=== PATIENT | male | born 1935 | race Caucasian/White ===

== ENCOUNTER 2024-04-19 10:04 | Inpatient (IN) | payer MEDICARE ==
[~2024-04-19] VITALS: Ht 172.7 cm; Wt 119.5 kg
[2024-04-19] VITALS (113 sets, daily range): BP systolic 109–122; BP diastolic 52–59; PULSE 65–67; TEMP 98; O2SAT 81–100
[2024-04-19] MEDS ORDERED: NS 1,000 ML IV ONE ×2 (10:45→11:30)
[2024-04-19 10:49] LABS: BASO % 0.2 % (0.0-2.0); GRAN # 8.6 K/mm3 (1.4-6.5); GRAN % 81.3 % (42.2-75.2); HEMOGLOBIN 11.8 g/dl (13.5-18.0); LYMPH # 0.7 K/mm3 (1.2-3.4); LYMPH % 6.6 % (20.0-51.0); MEAN CELL VOLUME 110 fl (80.0-100.0); MEAN CORPUSCULAR HEMOGLOBIN 37 pg (27-31); MEAN CORPUSCULAR HGB CONC 34 g/dl (33.0-37.0); MEAN PLATELET VOLUME 10.6 fl (7.4-10.4); MONO # 1.2 K/mm3 (0.1-0.6); MONO % 10.9 % (1.7-9.3); PLATELET COUNT 448 K/mm3 (130-400); RED BLOOD COUNT 3.19 M/mm3 (4.20-5.60); REDCELL DISTRIBUTION WIDTH-CV 15.9 % (11.5-14.5)
[2024-04-19 10:54] LABS: INR 1.2 (0.8-3.0); PROTHROMBIN TIME 12.8 SECONDS (9.7-12.8)
[2024-04-19 10:57] LABS: HEMATOCRIT 35.1 % (42.0-52.0)
[2024-04-19] MEDS ORDERED: PRINIVIL2.5 MG PO (11:06)
[2024-04-19] MEDS ORDERED: ZOCOR 40MG40 MG PO (11:06)
[2024-04-19] MEDS ORDERED: TOPROL XL 25MG25 MG PO (11:06)
[2024-04-19] MEDS ORDERED: ZOLOFT 50MG50 MG PO (11:06)
[2024-04-19 11:08] LABS: ALBUMIN 3.6 g/dL (3.4-4.8); BILIRUBIN,TOTAL 1.4 mg/dL (0.2-1.2); C-REACTIVE PROTEIN 0.64 mg/dL (0.00-0.50); CALCIUM 9.5 mg/dL (8.4-10.2); CREATININE, serum 1.05 mg/dL (0.72-1.25); POTASSIUM 3.9 mEq/L (3.5-4.5); TOTAL PROTEIN 7.1 g/dl (6.2-8.1)
[2024-04-19 11:14] LABS: TROPONIN-I 0.016 ng/mL (0.00-0.033)
[2024-04-19 11:41] LABS: PH 5.5 (5.0-8.5); URINE APPEARANCE TURBID (CLEAR/HAZY); URINE BLOOD 3+ (NEGATIVE); URINE COLOR Dark Yellow (YELLOW); URINE GLUCOSE NEGATIVE (NEGATIVE); URINE KETONE 1+ (NEGATIVE); URINE NITRATE POSITIVE (NEGATIVE); URINE PROTEIN(semi-quant) 3+ (NEGATIVE)
[2024-04-19] MEDS ORDERED: Iohexol 300 - 100 ML VIAL IV ONE (11:48)
[2024-04-19] MEDS ORDERED: NS 100 ML IV SCH (11:49)
[2024-04-19 11:52] LABS: COLLECTION METHOD IN; URINE RBC >50 /hpf (0-2)
[2024-04-19 11:53] LABS: URINE BACTERIA MANY /hpf (NONE SEEN); URINE CALCIUM OXALATE CRYSTAL PRESENT (NOT PRESENT)
[2024-04-19 11:54] LABS: URINE WBC >50 /hpf (0-2)
[2024-04-19] MEDS ORDERED: cefTRIAXone 1 G in Water For Injection,Sterile 10 ML IV ONE (12:00)
--- NOTE | 2024-04-19 14:07 | NUR ---
Arrived to the unit from ER. Patient alert and oriented, however is hard of hearing. VS are stable upon arrival. Hospitalist notified of arrival.
[2024-04-19] MEDS ORDERED: Acetaminophen 500 MG TAB PO PRN (15:00)
[2024-04-19] MEDS ORDERED: Ondansetron 4 MG/2 ML VIAL IV PRN (15:00)
[2024-04-19] MEDS ORDERED: NS 1,000 ML IV SCH (15:00)
--- NOTE | 2024-04-19 16:00 | NUR ---
Per Dr. Muniz's orders suprapubic catheter was exchanged. a 16 F lorenz was placed without difficulty. Yellow urine was observed in the tubing after placement.
--- NOTE | 2024-04-19 19:47 | NUR ---
PT JUST FINISHED EATING. RESPIRATIONS EVEN AND UNLABORED. NO SIGN OF DISTRESS AT THIS TIME. PATIENTS DAUGHTER HAS GONE BACK TO THE HOTEL.
--- NOTE | 2024-04-19 20:00 | NUR ---
PT INCONTINENT OF STOOL. [facility] PERFORMED. PT HIS NOOKSACK. DAUGHTER TO BRING IMPLANT/HEARING AIDE CHARGERS TOMORROW. PT DENIES NEEDS AT THIS TIME
[2024-04-19] MEDS ORDERED: Atorvastatin 20 MG TAB PO SCH (21:00)
[2024-04-19] MEDS ORDERED: Simvastatin 40 MG **** subs to Atorvastatin 20 MG PO SCH (21:00)
[2024-04-20] VITALS (62 sets, daily range): BP systolic 100–128; BP diastolic 43–58; PULSE 54–98; TEMP 97.9–98.4; O2SAT 97–100
[2024-04-20 05:17] LABS: BASO % 0.1 % (0.0-2.0); GRAN # 5.3 K/mm3 (1.4-6.5); GRAN % 74.7 % (42.2-75.2); LYMPH # 0.8 K/mm3 (1.2-3.4); LYMPH % 10.8 % (20.0-51.0); MEAN CELL VOLUME 108 fl (80.0-100.0); MEAN CORPUSCULAR HGB CONC 33 g/dl (33.0-37.0); MONO % 13.6 % (1.7-9.3); RED BLOOD COUNT 2.27 M/mm3 (4.20-5.60); REDCELL DISTRIBUTION WIDTH-CV 15.8 % (11.5-14.5)
[2024-04-20 05:21] LABS: HEMATOCRIT 24.6 % (42.0-52.0); HEMOGLOBIN 8.2 g/dl (13.5-18.0); MEAN CORPUSCULAR HEMOGLOBIN 36 pg (27-31); MEAN PLATELET VOLUME 10.4 fl (7.4-10.4); PLATELET COUNT 323 K/mm3 (130-400)
[2024-04-20 05:29] LABS: CREATININE, serum 0.69 mg/dL (0.72-1.25); MAGNESIUM 1.8 mg/dL (1.6-2.6); POTASSIUM 4.2 mEq/L (3.5-4.5)
[2024-04-20] MEDS ORDERED: Sertraline 50 MG TAB PO SCH (09:00)
[2024-04-20] MEDS ORDERED: cefTRIAXone 1 G in Water For Injection,Sterile 10 ML IV SCH (09:00)
--- NOTE | 2024-04-20 10:14 | NUR ---
SW met with patient and patient daughter/DPOA Katarzyna Doty ([phone]) to complete intake and discuss discharge planning. Patient currently resides in independent living in [place]. Patient PCP is Dr Forbes and pharmacy is [facility]. Patient currently reports no DMEs and poor with ADLs. PT/OT will be making recommendations on usp care. Patient's daughter informed AGNIESZKA that they have been research [facility] in [place] for their fathers care, previous to this hospitalization. This would be their first preference if they offer recommended care needed for patient. Patient's daughter Katarzyna explained that she resides in [place] and his son Abel Zarate ([phone]) lives in [place]. AGNIESZKA provided them list from medicare.gov listing of nursing homes, to review and selected [facility] with [facility]. AGNIESZKA will follow up with patient and family on their selection, to send over before end of day. Discharge plan: LTC (pending)
--- NOTE | 2024-04-20 10:28 | NUR ---
PT IS RESTING IN BED. HE IS ALERT AND ORIENTED. HIS HEARING DEVICES ARE NOT CHARGED SO COMMUNICATION WAS A LITTLE STRAINED. HE HAS A SUPRAPUBIC CATHETER IN PLACE. PT WEARS A BRIEF FOR PERIODS OF INCONTINENCE. HE HAS NO OXYGEN NEEDS. HE HAS AN IV SITE WITH FLUIDS INFUSING. HE HAS A CELL PHONE AT THE BEDSIDE.
[2024-04-20] MEDS ORDERED: Docusate Sodium 100 MG CAP PO SCH (11:02)
[2024-04-20] MEDS ORDERED: Polyethylene Glycol 3350 17 GM PDS PO SCH (11:02)
--- NOTE | 2024-04-20 12:26 | NUR ---
Data: Spiritual care visit attempted during Nurse Special rounds. RN was with Patient. Assessment: None at this time. Plan of Care: Chaplains will remain available as needed/requested while Patient is admitted to this hospital.
--- NOTE | 2024-04-20 15:26 | NUR ---
PT WAS WHEELED TO HIS NEW ROOM 328 WITH HIS DAUGHTER AND THIS NURSE. HIS DAUGHTER HAD ALL OF HIS BELONINGS INCLUDING HIS COCHLEAR IMPLANT HEARING GOLD FRAME ASSEMBLER AND HIS PHONE. PT WAS ABLE TO MOVE WITH A ONE ASSIST AND HIS IS ALERT AND ORIENTED.
--- NOTE | 2024-04-20 15:27 | NUR ---
PATIENT ARRIVED FROM ICU AT 1500. VSS. PATIENT REPORTS NO PAIN AT THIS TIME. FALL PRECAUTIONS IN PLACE. DAUGHTER AT BEDSIDE. VU IN PLACE. IV TO LFT FOREARM NS RUNNING AT 75ML/HR. CALL LIGHT IN REACH
--- NOTE | 2024-04-20 16:07 | NUR ---
SW revisited with patient's daughter OTIS, she commuinicated that she would be working on talking with patient (father) about placement her first preference would be [facility], as the family has been working with sales representative leather goods on getting patient placed there. 2nd preference was select after reviewing the medicare.gov listed SW provided was [facility] and third would be [facility]. AGNIESZKA will send out referrals and follow for updates at this time.
[2024-04-21] VITALS (11 sets, daily range): BP systolic 126–150; BP diastolic 62–70; PULSE 71–88; TEMP 97.8–98.6
[2024-04-21 06:17] LABS: BASO % 0.2 % (0.0-2.0); EOS % 0.4 % (0.0-4.0); GRAN # 3.5 K/mm3 (1.4-6.5); GRAN % 66.1 % (42.2-75.2); LYMPH # 0.9 K/mm3 (1.2-3.4); LYMPH % 16.3 % (20.0-51.0); MEAN CELL VOLUME 107 fl (80.0-100.0); MEAN CORPUSCULAR HGB CONC 34 g/dl (33.0-37.0); MEAN PLATELET VOLUME 10.1 fl (7.4-10.4); MONO # 0.9 K/mm3 (0.1-0.6); MONO % 16.3 % (1.7-9.3); PLATELET COUNT 319 K/mm3 (130-400); RED BLOOD COUNT 2.72 M/mm3 (4.20-5.60); REDCELL DISTRIBUTION WIDTH-CV 15.6 % (11.5-14.5)
[2024-04-21 06:27] LABS: HEMATOCRIT 29.2 % (42.0-52.0); HEMOGLOBIN 9.8 g/dl (13.5-18.0); MEAN CORPUSCULAR HEMOGLOBIN 36 pg (27-31)
--- NOTE | 2024-04-21 11:19 | NUR ---
support worker faxed SNF referral to [facility]. SW emailed referral to [facility]. AGNIESZKA faxed referral to [facility] f: [phone]. OT pending Discharge Plan: Skilled Nursing LTC vs SNF
--- NOTE | 2024-04-21 11:36 | NUR ---
IV FLUIDS DC'D PATIENT INT'D.
[2024-04-22] VITALS: BP 144/58; PULSE 72; TEMP 98
[2024-04-22 01:00] VITALS: BP_SYST 144
[2024-04-22 04:00] VITALS: BP 149/67; PULSE 62; TEMP 97.9
--- NOTE | 2024-04-22 06:37 | NUR ---
pt c/o burning/stinging pain around rectum and noticing some bright red blood in toilet and when wiping, has been having frequent stools the last 24 hours, will ask for an order for numbing ointment.
[2024-04-22 08:00] VITALS: BP 126/88; PULSE 83; TEMP 97.8
[2024-04-22 10:22] LABS: CALCIUM 8.7 mg/dL (8.4-10.2); CREATININE, serum 0.7 mg/dL (0.72-1.25); POTASSIUM 3.7 mEq/L (3.5-4.5)
--- NOTE | 2024-04-22 10:45 | NUR ---
SHIFT ASSESSMENT COMPLETE. VSS. PATIENT RESTING IN BED W/DAUGHTER AT BEDSIDE. MORNING MEDS GIVEN ORDERED. PATIENT STILL HAVING SOME LIQUID STOOLS THIS AM. PATIENT HAS INT TO LFT FOREARM. VU IN PLACE YELLOW URINE DRAINING. PATIENT HAS NO REQUEST AT THIS TIME. FALL PRECAUTIONS IN PLACE AND CALL LIGHT IN REACH
[2024-04-22 11:26] LABS: HEMOGLOBIN 10.1 g/dl (13.5-18.0); MEAN CELL VOLUME 105 fl (80.0-100.0); MEAN CORPUSCULAR HEMOGLOBIN 37 pg (27-31); MEAN CORPUSCULAR HGB CONC 35 g/dl (33.0-37.0); MEAN PLATELET VOLUME 10.8 fl (7.4-10.4); PLATELET COUNT 314 K/mm3 (130-400); RED BLOOD COUNT 2.74 M/mm3 (4.20-5.60); REDCELL DISTRIBUTION WIDTH-CV 15.6 % (11.5-14.5)
[2024-04-22 11:29] LABS: HEMATOCRIT 28.8 % (42.0-52.0)
[2024-04-22 11:40] VITALS: BP 125/64; PULSE 79; TEMP 98.3
--- NOTE | 2024-04-22 11:53 | NUR ---
granite worker attended interdisciplinary clinical rounding with Dr. Beltran. Patient is medically ready for discharge when placement is secured. AGNIESZKA reviewed notes from weekend social media intern. Family's first choice is [facility] but referrals were also sent to [facility] and [facility]. AGNIESZKA faxed clinical updates to [facility] and [facility]. AGNIESZKA left a voicemail with Liv (admissions) at [facility]. AGNIESZAK was notified [facility] is unable to accept as they believe patient would need LTC after and they do not have bed availability for LTC. AGNIESZKA contacted [facility] whom is reviewing the referral. SW left another voicemail at [facility]. SW was notified [facility] is able to accept and AGNIESZKA verified patient is able to be skilled first. AGNIESZKA contacted Katarzyna, daughter/DPOA, P# [phone], to discuss the above information. Katarzyna expressed they have been in contact with Liv at [facility] today and have provided paperwork that they needed. AGNIESZKA explained patient is medically ready for discharge today. AGNIESZKA attempted to contact [facility] two more times. No answer. AGNIESZKA contacted patient's daughter whom expressed they would move forward with [facility] for rehab then would look at [facility] for LTC afterwards. AGNIESZKA contacted [facility] with patient's daughter present and explained this information. [facility] stated they are good to accept patient today at 2 pm. SW notified patient's nurse, Dr. Beltran, SHELL Keller, and business unit controller. Patient's daughter stated patient could sign his form. AGNIESZKA met with patient and discussed the above information. Patient understood and has no questions. SW reviewed the IM from Medicare. Patient expressed he understood and has no questions. Patient signed the from. AGNIESZKA made a copy, placed original in chart and provided copy to patient. AGNIESZKA reviewed this form with patient's daughter via telephone. Daughter understood and had no questions or concerns. DIscharge plan: SNF- [facility]
[2024-04-22] MEDS ORDERED: CEFTIN500 MG PO ×2 (11:54→13:13)
[2024-04-22 12:00] VITALS: BP_SYST 125
[2024-04-22 12:00] LABS: LYMPHOCYTE 14 % (20.0-51.0); NEUTROPHILS 61 % (42.0-75.2); PLATELET ESTIMATE NORMAL (NORMAL)
[2024-04-22 12:01] LABS: ANISOCYTOSIS 1+
--- NOTE | 2024-04-22 12:21 | NUR ---
AGNIESZKA secure emailed discharge orders to [facility]. AGNIESZKA notified [facility] via telephone that the orders were sent via email. Discharge plan: [facility]- [facility]
== END 2024-04-22 14:06 | DRG 699 ==
LOC: COL.ER 10:04 → ICU 11:36 → SURG 04-20 14:10
PROVIDERS: Emergency Medicine; Physician Assistant; ADMIT Internal Medicine
DX: T83.518A Infection and inflammatory reaction due to other urinary catheter, initial encounter (principal); E44.0 Moderate protein-calorie malnutrition; N39.0 Urinary tract infection, site not specified; E87.20 Acidosis, unspecified; Z68.1 Body mass index [BMI] 19.9 or less, adult; I25.10 Atherosclerotic heart disease of native coronary artery without angina pectoris; Y84.6 Urinary catheterization as the cause of abnormal reaction of the patient, or of later complication, without mention of misadventure at the time of the procedure; K59.00 Constipation, unspecified; Z96.21 Cochlear implant status; I10 Essential (primary) hypertension; F32.A Depression, unspecified; Z96.0 Presence of urogenital implants; Z79.899 Other long term (current) drug therapy; Z95.5 Presence of coronary angioplasty implant and graft; I25.2 Old myocardial infarction
CPT/HCPCS: J0696; J1650; J7030; Q9967

== ENCOUNTER → 2024-04-28 | Outpatient (REF) | payer MEDICARE ==
[~2024-04-28] MED LIST: CEFTIN500 MG PO; PRINIVIL2.5 MG PO; TOPROL XL 25MG25 MG PO; ZOCOR 40MG40 MG PO; ZOLOFT 50MG50 MG PO
[2024-04-28 14:22] LABS: HEMATOCRIT 27.3 % (42.0-52.0); MEAN CELL VOLUME 110 fl (80.0-100.0); MEAN CORPUSCULAR HEMOGLOBIN 36 pg (27-31); MEAN CORPUSCULAR HGB CONC 33 g/dl (33.0-37.0); MEAN PLATELET VOLUME 10.5 fl (7.4-10.4); PLATELET COUNT 341 K/mm3 (130-400); RED BLOOD COUNT 2.48 M/mm3 (4.20-5.60); REDCELL DISTRIBUTION WIDTH-CV 16.6 % (11.5-14.5)
[2024-04-28 14:26] LABS: HYPOCHROMIA 1+; LYMPHOCYTE 21 % (20.0-51.0); NEUTROPHILS 47 % (42.0-75.2); OVALOCYTES 1+; PLATELET ESTIMATE NORMAL (NORMAL)
[2024-04-28 14:27] LABS: ANISOCYTOSIS 1+
[2024-04-28 14:34] LABS: CALCIUM 8.6 mg/dL (8.4-10.2); CREATININE, serum 0.78 mg/dL (0.72-1.25); MAGNESIUM 2.1 mg/dL (1.6-2.6); POTASSIUM 3.9 mEq/L (3.5-4.5)
== END ==
LOC: ZCOL.LAB 14:00
PROVIDERS: Family Medicine
DX: I10 Essential (primary) hypertension (principal)